=== PATIENT | female | born 1945 | race Caucasian/White ===

== ENCOUNTER → 2016-06-15 | Day surgery (SDC) | payer MEDICARE ==
[~2016-06-15] MED LIST: ACET500T3 PO; ATOR20TA15 PO; KETOROLAC TROMETHAMINE 30 MG/ML (IVP) VIAL IV PUSH ONE; LISI-515 PO; MEPERIDINE HCL 25 MG/ML VIAL IV ONE; OMEP20TA PO; PARO30TA2 PO; PROPOFOL 200 MG/20 ML AMP IV ONE; SODIUM CHLORIDE 0.9% 10 ML VIAL ONE
--- NOTE | 2016-06-16 13:25 | M6 ---
cc: LEIGHA HOOKS M.D. DATE 06/15/2016 DATE OF 1945 PROCEDURE Fluoroscopically guided injection neurolytic substance bilateral sacroiliac joints (3% phenol). History and physical was completed and signed. Consent was signed. Procedure site was marked. Medications were listed and reconciled. Pain score was recorded. Allergies were noted. Time out was taken. Fluoroscopy time was recorded where applicable. Sedation was administered or directed by Dr. Hooks. The patient was given oxygen. The patient was monitored by a registered nurse. Total procedure time was greater than 15 minutes. PROCEDURE NOTES IV was started. Blood pressure cuff, pulse oximeter and EKG were applied. The patient was placed in the prone position on a Tucker table, sedated with small amounts of Demerol and propofol titrated to effect. Vital signs were monitored and remained stable throughout the procedure. The sacral area was prepped with alcohol and 10% Betadine solution and draped with sterile drapes. Fluoroscopy was used shooting from medial to lateral to clearly visualize the posterior joint line of the bilateral sacroiliac joints. Separate sterile 5-inch, 22-gauge spinal needles were advanced into these joints under fluoroscopic guidance. There was negative aspiration for blood or any other type of fluid and at each location the patient was given 2 mL of 3% phenol. Following the procedure the patient was taken to the recovery room with stable vital signs, neurologically intact. W. MD SHEY Tran/LAI /10:27 AM /1:24 PM
== END | disposition home or self-care (01) ==
LOC: PHSDC 08:50
PROVIDERS: ATTEND Pain Medicine Interventional Pain Medicine
DX: M54.5 Low back pain (principal)
CPT/HCPCS: 64640; 99152; J1885; J2175